=== PATIENT | female | born 1960 | race Two or more races ===

== ENCOUNTER 2018-01-25 08:50 | Inpatient (IN) | payer OTHER ==
[2018-01-25 08:59] VITALS: BMI 37.2
--- NOTE | 2018-01-25 09:17 | PDOC ---
History of Present Illness - General Chief Complaint: Pain, Acute Stated Complaint: ABD PAIN Time Seen by Provider: 01/25/18 09:07 - History of Present Illness Initial Comments: 01/25/18 09:56 57 year old female with a PMH of HTN, NIDDM presents with two day h/o abdominal pain. Pain is "sharp" and "twisting" constant, 10/10, with radiation into her back B/L. Associated yellowish emesis and nausea. No fevers/chills, diarrhea/ constipation, dysuria/hematuria. Has been tolerating PO intake however notes decreased appetite 2/2 to her symptoms. Patient denies any chest pain, shortness of breath, fevers/chills, recent travel or sick contacts. NKDA Surgical: cholecystectomy, appendectomy, hysterectomy Social: lifetime non-smoker, denies alcohol, denies recreational drugs PMD: Dr. Barajas Past History - Past Medical History Allergies/Adverse Reactions: Allergies Allergy/AdvReac Type Severity Reaction Status Date / Time No Known Allergies Allergy Verified 01/25/18 08:56 Home Medications: Ambulatory Orders Cholecalciferol (Vitamin D3) [Vitamin D3] 1,000 unit PO DAILY 01/25/18 Enalapril/Hydrochlorothiazide [Vaseretic 10-25 mg Tablet] 1 each PO DAILY Metformin HCl 500 mg PO BID 01/25/18 Multivitamin [Multiple Vitamins] 1 each PO DAILY 01/25/18 Simvastatin [Zocor -] 10 mg PO DAILY 01/25/18 Sitagliptin Phosphate [Januvia] 50 mg PO DAILY 01/25/18 COPD: No Diabetes: Yes (NIDDM) HTN: Yes Hypercholesterolemia: Yes - Surgical History Abdominal Surgery: Yes Cholecystectomy: Yes - Immunization History Immunization Up to Date: Yes - Suicide/Smoking/Psychosocial Hx Smoking Status: No Smoking History: Never smoked Number of Cigarettes Smoked Daily: 0 Hx Alcohol Use: No Review of Systems - Review of Systems Constitutional: No: Chills, Fever HEENTM: No: Recent change in vision, Mouth Swelling Respiratory: No: Shortness of Breath Cardiac (ROS): No: Chest Pain, Lightheadedness, Palpitations, Syncope ABD/GI: Yes: Nausea, Vomiting, Abdominal cramping. No: Constipated, Diarrhea : No: Burning, Dysuria *Physical Exam - Vital Signs Last Vital Signs Temp Pulse Resp BP Pulse Ox 98.4 F 90 19 140/93 97 01/25/18 08:57 01/25/18 08:57 01/25/18 08:57 01/25/18 08:57 01/25/18 08:57 - Physical Exam Comments: 01/25/18 18:38 GENERAL: Awake, alert, and fully oriented, in no acute distress HEAD: No signs of trauma EYES: PERRLA, EOMI, sclera anicteric, conjunctiva clear ENT: Auricles normal inspection, hearing grossly normal, nares patent, oropharynx clear without exudates. Moist mucosa NECK: Nontender, no stepoffs, Normal ROM, supple, no lymphadenopathy, JVD, or masses LUNGS: Breath sounds equal, clear to auscultation bilaterally. No wheezes, and no crackles HEART: Regular rate and rhythm, normal S1 and S2, no murmurs, rubs or gallops ABDOMEN: diffuse TTP, hypoactive bowel sounds, no masses, no hernia EXTREMITIES: Normal range of motion, no edema. No clubbing or cyanosis. No cords, erythema, or tenderness SKIN: Warm, Dry, normal turgor, no rashes or lesions noted. ED Treatment Course - LABORATORY CBC & Chemistry Diagram: 01/25/18 10:00 01/25/18 10:17 Medical Decision Making - Medical Decision Making 01/25/18 12:08 57 year old female presents with 2 day h/o diffuse abdominal pain with emesis. Physical exam significant for diffuse abdominal tenderness with hypoactive bowel sounds. Frontal diagnosis: SBO, mesenteric ischemia, PUD, pancreatitis, colitis. Will obtain basic labs, lactic acid, lipase as well as CT abdomen. IV NS + Morphine for pain control. 01/25/18 13:58 Leukocytosis (14.8), likely 2/2 to pancreatitis (Lipase 4653). Elevated LFT's. Will give additional 1 L IV NS. Cr 1.[address] then [address] scan. Patient c/o GERD like pain - Famotidine 01/25/18 14:[address] Gomez for pancreatitis. POC discussed with patient and patient's family, will continue to monitor while in ED. *DC/Admit/Observation/Transfer Diagnosis at time of Disposition: Pancreatitis - Discharge Dispostion Condition at time of disposition: Fair Admit: Yes - Referrals - Patient Instructions - Post Discharge Activity
[2018-01-25 10:27] LABS: BASO % 0.4 % (0-2.0); EOS % 0.1 % (0-4.5); HEMATOCRIT 42.1 % (32.4-45.2); HEMOGLOBIN 14.4 GM/dL (10.7-15.3); LYMPH % 9.6 % (8-40); MCH 29.2 pg (25.7-33.7); MCHC 34.2 g/dl (32.0-36.0); MEAN CELL VOLUME 85.5 fl (80-96); MONO % 5.4 % (3.8-10.2); NEUT % 84.5 % (42.8-82.8); PLATELET COUNT 230 K/MM3 (134-434); RBC 4.92 M/mm3 (3.60-5.2); RDW 13.9 % (11.6-15.6); WHITE BLOOD COUNT 14.8 K/mm3 (4.0-10.0)
[2018-01-25 10:29] LABS: URINE APPEARANCE SLCLOUDY; URINE BILIRUBIN NEGATIVE (<2.0 mg/dL); URINE COLOR YELLOW; URINE GLUCOSE (UA) NEGATIVE (NEGATIVE); URINE KETONE NEGATIVE (NEGATIVE); URINE LEUK ESTERASE NEGATIVE (NEGATIVE); URINE NITRITE NEGATIVE (NEGATIVE); URINE UROBILINOGEN NEGATIVE mg/dL (0.2-1.0)
[2018-01-25 10:31] LABS: EPI CELLS RARE /HPF (FEW); URINE HYALINE CAST 1 /lpf; URINE MUCUS RARE; URINE PROTEIN 1+ (NEGATIVE)
[2018-01-25] MEDS ORDERED: SODIUM CHLORIDE 1,000 ML IV STA (10:48)
[2018-01-25] MEDS ORDERED: ONDANSETRON 4 MG/2 ML VIAL IVPB ONE (10:48)
[2018-01-25] MEDS ORDERED: ONDANSETRON 4 MG/2 ML VIAL ONE (10:52)
[2018-01-25] MEDS ORDERED: morphine CARPU-JECT 4 MG/1 ML DISP.SYRIN IVPUSH ONE (11:20)
--- NOTE | 2018-01-25 11:20 | PDOC ---
Attending Attestation - Resident Resident Name: Monica Rausch - ED Attending Attestation I have performed the following: I have examined & evaluated the patient, The case was reviewed & discussed with the resident, I agree w/resident's findings & plan, Exceptions are as noted - HPI HPI: 01/25/18 11:18 The patient is a 57 year old female with past medical history of hypertension, NIDDM s/p cholecystectomy 10 years ago who presents to the ED with complaints of 2 days of abdominal pain, nausea, and vomiting. The patient reports the pain is diffuse, sharp, and constant, 10/10 in severity. It is associated with multiple episodes of yellow emesis. She reports decreased PO intake and ate soup last night. Last BM was yesterday evening as well. Denies diarrhea. The patient denies any fevers, chills, diarrhea, cough, SOB, or urinary symptoms. - Physicial Exam PE: 01/25/18 11:19 "GENERAL: Awake, alert, and fully oriented, in no acute distress. HEAD: No signs of trauma EYES: PERRLA, EOMI, sclera anicteric, conjunctiva clear ENT: Auricles normal inspection, hearing grossly normal, nares patent, oropharynx clear without exudates. Moist mucosa NECK: Nontender, no stepoffs, Normal ROM, supple, no lymphadenopathy, JVD, or masses LUNGS: Breath sounds equal, clear to auscultation bilaterally. No wheezes, and no crackles HEART: Regular rate and rhythm, normal S1 and S2, no murmurs, rubs or gallops ABDOMEN: + Diffuse TTP, normoactive bowel sounds. No guarding, no rebound. No masses EXTREMITIES: Normal range of motion, no edema. No clubbing or cyanosis. No cords, erythema, or tenderness NEUROLOGICAL: Cranial nerves II through XII intact. 5/5 strength and sensation in all extremities, Normal speech, normal gait, normal cerebellar function SKIN: Warm, Dry, normal turgor, no rashes or lesions noted. " - Medical Decision Making 01/25/18 11:19 57 F with diffuse abdominal pain + N/V. Possible SBO given prior surgical history. Also consider pancreatitis vs colitis. - Labs - CTAP - IVF, zofran, morphine
[2018-01-25] MEDS ORDERED: morphine SULFATE 4 MG/ML VIAL ONE ×2 (11:25→16:28)
[2018-01-25 11:58] LABS: ALBUMIN 4.1 g/dl (3.4-5.0); ALK PHOS 149 U/L (45-117); ANION GAP 11 (8-16); BLOOD UREA NITROGEN 26 mg/dL (7-18); CALCIUM 9.4 mg/dL (8.5-10.1); CHLORIDE 97 mmol/L (98-107); CO2 30 mmol/L (21-32); CREATININE 1.3 mg/dL (0.55-1.02); GLUCOSE,RANDOM 159 mg/dL (74-106); POTASSIUM 3.4 mmol/L (3.5-5.1); SGOT/AST 261 U/L (15-37); SGPT/ALT 481 U/L (12-78); SODIUM 138 mmol/L (136-145)
[2018-01-25] MEDS ORDERED: SODIUM CHLORIDE 0.9% 500 ML INFUS.BAG IV ONE (12:06)
[2018-01-25] MEDS ORDERED: FAMOTIDINE IV 20 MG/12 ML VIAL IVPUSH ONE (13:40)
[2018-01-25] MEDS ORDERED: FAMOTIDINE 20 MG/50 ML IVPB 20 MG/50 ML MG IVPB ONE (13:56)
[2018-01-25] MEDS ORDERED: PROMETHAZINE HCL 25 MG/1 ML VIAL IM PRN (14:47)
[2018-01-25] MEDS ORDERED: LACTATED RINGERS SOLUTION 1,000 ML IV STA (14:47)
[2018-01-25] MEDS ORDERED: morphine CARPU-JECT 2 MG/1 ML DISP.SYRIN IVPUSH PRN (14:58)
--- NOTE | 2018-01-25 15:12 | HP ---
CHIEF COMPLAINT: abdominal pain PCP: HISTORY OF PRESENT ILLNESS: The patient is a 57 yo Finnish speaking f w/ PMH HTN, HLD, DM (on metformin, januvia, lisinopril/HCTZ) who comes into the ED c/o a 2 day hx of abdominal pain , The patient describes the pain as "twisting". It is constant, 10/10 in intensity and radiates to the patient's back. The pain is associated with nausea and NBNB vomiting over the same period of time. The patient states that eating or drinking makes the pain worse, causing her to have a decreased appetite. The patient also endorses SOB and darker urine. No change is shape or caliber of stool. The patient denies CP, recent travel, sick contacts, dysuria, recent scorpion bites. No recent changes in medications or medication doses. Patient does admit to accidentally taking an extra dose of her Januvia recently. ER course was notable for: (1) 2l NS (2) ast, alt elevated (3) Lipase >2x upper limit of normal Recent Travel: none PAST MEDICAL HISTORY: see HPI PAST SURGICAL HISTORY: cholecystectomy several orthopedic surgeries. Social History: Smoking: denies Alcohol: denies Drugs: denies Family History: non-contributory Allergies No Known Allergies Allergy (Verified 01/25/18 08:56) HOME MEDICATIONS: Home Medications Medication Instructions Recorded Cholecalciferol (Vitamin D3) 1,000 unit PO DAILY 01/25/18 [Vitamin D3] Enalapril/Hydrochlorothiazide 1 each PO DAILY 01/25/18 [Vaseretic 10-25 mg Tablet] Metformin HCl 500 mg PO BID 01/25/18 Multivitamin [Multiple Vitamins] 1 each PO DAILY 01/25/18 Simvastatin [Zocor -] 10 mg PO DAILY 01/25/18 Sitagliptin Phosphate [Januvia] 50 mg PO DAILY 01/25/18 REVIEW OF SYSTEMS CONSTITUTIONAL: Absent: fever, chills, diaphoresis, generalized weakness, malaise, weight change HEENT: Absent: rhinorrhea, nasal congestion, throat pain, throat swelling, difficulty swallowing, mouth swelling, ear pain, eye pain, visual changes CARDIOVASCULAR: Absent: chest pain, syncope, palpitations, irregular heart rate, lightheadedness , peripheral edema RESPIRATORY: Absent: cough, dyspnea with exertion, orthopnea, wheezing, stridor, hemoptysis GASTROINTESTINAL: Absent: diarrhea, constipation, melena, hematochezia GENITOURINARY: Absent: dysuria, frequency, urgency, hesitancy, hematuria, flank pain, genital pain MUSCULOSKELETAL: Absent: myalgia, arthralgia, joint swelling, back pain, neck pain SKIN: Absent: rash, itching, pallor HEMATOLOGIC/IMMUNOLOGIC: Absent: easy bleeding, easy bruising, lymphadenopathy, frequent infections ENDOCRINE: Absent: unexplained weight gain, unexplained weight loss, heat intolerance, cold intolerance NEUROLOGIC: Absent: headache, focal weakness or paresthesias, dizziness, unsteady gait, seizure, mental status changes, bladder or bowel incontinence PSYCHIATRIC: Absent: anxiety, depression, suicidal or homicidal ideation, hallucinations. PHYSICAL EXAMINATION Vital Signs - 24 hr 01/25/18 01/25/18 08:57 12:44 Temperature 98.4 F Pulse Rate 90 Pulse Rate [ 84 Apical] Respiratory 19 17 Rate Blood Pressure 140/93 Blood Pressure 139/85 [Right Arm] O2 Sat by Pulse 97 100 Oximetry (%) GENERAL: Awake, alert, and fully oriented, in no acute distress. HEAD: Normal with no signs of trauma. EYES: Pupils equal, round and reactive to light, extraocular movements intact, sclera anicteric, conjunctiva clear. No lid lag. EARS, NOSE, THROAT: oropharynx clear without exudates. dry, pale mucous membranes. NECK: Normal range of motion, supple without lymphadenopathy, JVD, or masses. LUNGS: Breath sounds equal, clear to auscultation bilaterally. No wheezes, and no crackles. No accessory muscle use. HEART: Regular rate and rhythm, normal S1 and S2 without murmur, rub or gallop. ABDOMEN: Soft, diffusely tender to palpation, not distended, normoactive bowel sounds. No hepatomegaly or splenomegaly. LOWER EXTREMITIES: 2+ pulses, warm, well-perfused. No calf tenderness. No peripheral edema. NEUROLOGICAL: Cranial nerves II-X intact. Normal speech. SKIN: Warm, dry, normal turgor, no rashes or lesions noted, normal capillary refill. Laboratory Results - last 24 hr 01/25/18 01/25/18 01/25/18 10:00 10:00 10:00 WBC 14.8 H D RBC 4.92 Hgb 14.4 D Hct 42.1 D MCV 85.5 MCH 29.2 MCHC 34.2 RDW 13.9 Plt Count 230 MPV 11.0 Neutrophils % 84.5 H Lymphocytes % 9.6 D Monocytes % 5.4 Eosinophils % 0.1 Basophils % 0.4 Sodium Cancelled Potassium Cancelled Chloride Cancelled Carbon Dioxide Cancelled Anion Gap Cancelled BUN Cancelled Creatinine Cancelled Creat Clearance w eGFR Cancelled POC Glucometer Random Glucose Cancelled Lactic Acid 1.5 Calcium Cancelled Total Bilirubin Cancelled AST Cancelled ALT Cancelled Alkaline Phosphatase Cancelled Creatine Kinase Cancelled Troponin I Cancelled Total Protein Cancelled Albumin Cancelled Lipase Cancelled Urine Color Urine Appearance Urine pH Ur Specific [place] Urine Protein Urine Glucose (UA) Urine Ketones Urine Blood Urine Nitrite Urine Bilirubin Urine Urobilinogen Ur Leukocyte Esterase Urine WBC (Auto) Urine RBC (Auto) Ur Epithelial Cells Hyaline Casts Urine Mucus 01/25/18 01/25/18 01/25/18 10:17 10:17 10:18 WBC RBC Hgb Hct MCV MCH MCHC RDW Plt Count MPV Neutrophils % Lymphocytes % Monocytes % Eosinophils % Basophils % Sodium 138 Potassium 3.4 L Chloride 97 L Carbon Dioxide 30 Anion Gap 11 BUN 26 H Creatinine 1.3 H Creat Clearance w eGFR 42.07 POC Glucometer Random Glucose 159 H Lactic Acid Calcium 9.4 Total Bilirubin 1.0 D AST 261 H ALT 481 H Alkaline Phosphatase 149 H Creatine Kinase Troponin I Total Protein 8.0 Albumin 4.1 Lipase 4653 H Urine Color Yellow Urine Appearance Slcloudy Urine pH 5.0 Ur Specific [place] 1.018 Urine Protein 1+ H Urine Glucose (UA) Negative Urine Ketones Negative Urine Blood 2+ H Urine Nitrite Negative Urine Bilirubin Negative Urine Urobilinogen Negative Ur Leukocyte Esterase Negative Urine WBC (Auto) 5 Urine RBC (Auto) 2 Ur Epithelial Cells Rare Hyaline Casts 1 Urine Mucus Rare 01/25/18 10:28 WBC RBC Hgb Hct MCV MCH MCHC RDW Plt Count MPV Neutrophils % Lymphocytes % Monocytes % Eosinophils % Basophils % Sodium Potassium Chloride Carbon Dioxide Anion Gap BUN Creatinine Creat Clearance w eGFR POC Glucometer 171.77304 Random Glucose Lactic Acid Calcium Total Bilirubin AST ALT Alkaline Phosphatase Creatine Kinase Troponin I Total Protein Albumin Lipase Urine Color Urine Appearance Urine pH Ur Specific [place] Urine Protein Urine Glucose (UA) Urine Ketones Urine Blood Urine Nitrite Urine Bilirubin Urine Urobilinogen Ur Leukocyte Esterase Urine WBC (Auto) Urine RBC (Auto) Ur Epithelial Cells Hyaline Casts Urine Mucus ASSESSMENT/PLAN: The patient is a 57 yo f w/ PMH htn, HLD, DM who comes into the patient c/o pain the abdomen diagniosed with acute pancreatitis. #Acute pancreatiitis lilkey drug indiced by keara and HCTZ -LR 1L bolus, got 2l in ER -LR @ 200 mantin urin output of 0.5-1ml/kg/hr -monitor intake/output -monitor serum calcium -monitor BGM -US Abdomen look for CBD/ remanant stone/mass -Incentive spirometry -pain ctrl -NPO -phenergan PRN nausea -ISS ACHS -Lipid panel -GI consult; Dr. Ghotra -BISAP score 1 -CXR to look for effusion #elevated LFTs 2/2 statin use vs choledocolithiasis (less likely) -monitor LFTs -hepatic panel (pt w/ hx blood transfusion) #VERNON likley prerenal -monitor creatinine -IVF -avoid nephrotoxic drugs -hold home lisinopril #HTN -hold home antihypertensives -can give CCB or BB PRN HTN #DM -BGM achs -ISS achs -stop januvia -holding metformin #HLD -holding statin 2/2 elevated LFTs #FEN -LR @ 200 -monitor lytes -NPO #Prophy -SCDs -famotidine BID #Dispo -admit med surg Problem List - Problem (1) Acute pancreatitis Code(s): K85.90 - ACUTE PANCREATITIS WITHOUT NECROSIS OR INFECTION, UNSP Qualifiers: Pancreatitis type: drug induced Visit type - Emergency Visit Emergency Visit: Yes Care time: The patient presented to the Emergency Department on the above date and was hospitalized for further evaluation of their emergent condition. - New Patient This patient is new to me today: Yes Date on this admission: 01/25/18 - Critical Care Critical Care patient: No Hospitalist Screening - Colonoscopy Questionnaire Colonoscopy Questionnaire: Colonoscopy Questionnaire - Patient: 50 - 75 years old and never had a screening colonoscopy: Unknown History of colon or rectal polyps, or CA: Unknown History of IBD, Crohn's disease or UC: Unknown History of abdominal radiation therapy as a child: Unknown - Relative: 1 with colon or rectal CA, or polyps at age 60 or younger: Unknown Colon or rectal CA diagnosed at age 45 or younger: Unknown Multiple relatives with colon or rectal CA: Unknown - Outcome: Screening Result: Negative Screen
--- NOTE | 2018-01-25 16:44 | EKG ---
Test Reason : Blood Pressure : / mmHG Vent. Rate : 083 BPM Atrial Rate : 083 BPM P-R Int : 130 ms QRS Dur : 084 ms QT Int : 384 ms P-R-T Axes : -86 016 066 degrees QTc Int : 451 ms UNUSUAL P AXIS AND SHORT CO, PROBABLE JUNCTIONAL TACHYCARDIA NONSPECIFIC ST AND T WAVE ABNORMALITY ABNORMAL ECG WHEN COMPARED WITH ECG OF 08-FEB-2015 19:51, JUNCTIONAL RHYTHM HAS REPLACED SINUS RHYTHM NONSPECIFIC T WAVE ABNORMALITY NOW EVIDENT IN ANTERIOR LEADS Confirmed by MD Reynold, Dakotah ([id number]) on 01/25/2018 4:44:22 PM Referred By: Confirmed By:Dakotah Flaherty MD
[2018-01-25] MEDS: LACTATED RINGERS SOLUTION 1,000 ML IV SCH ×2 (17:24→21:47)
[2018-01-25] MEDS: INSULIN SLIDING SCALE (NOVOLOG) 1 VIAL SQ SCH ×2 (17:24→21:40)
--- NOTE | 2018-01-25 18:41 | PN ---
Teaching Attending Note Name of Resident: Gustavo Ellis ATTENDING PHYSICIAN STATEMENT I saw and evaluated the patient. I reviewed the resident's note and discussed the case with the resident. I agree with the resident's findings and plan as documented. SUBJECTIVE: OBJECTIVE: Vital Signs Period Temp Pulse Resp BP Sys/[place] Pulse Ox Last 24 Hr 98.4 F-98.9 F 84-90 17-20 124-145/72-93 97-100 Laboratory Tests 01/25/18 01/25/18 01/25/18 10:00 10:00 10:00 WBC 14.8 H D RBC 4.92 Hgb 14.4 D Hct 42.1 D MCV 85.5 MCH 29.2 MCHC 34.2 RDW 13.9 Plt Count 230 MPV 11.0 Neutrophils % 84.5 H Lymphocytes % 9.6 D Monocytes % 5.4 Eosinophils % 0.1 Basophils % 0.4 Sodium Cancelled Potassium Cancelled Chloride Cancelled Carbon Dioxide Cancelled Anion Gap Cancelled BUN Cancelled Creatinine Cancelled Creat Clearance w eGFR Cancelled POC Glucometer Random Glucose Cancelled Lactic Acid 1.5 Calcium Cancelled Total Bilirubin Cancelled AST Cancelled ALT Cancelled Alkaline Phosphatase Cancelled Creatine Kinase Cancelled Troponin I Cancelled Total Protein Cancelled Albumin Cancelled Lipase Cancelled Urine Color Urine Appearance Urine pH Ur Specific [place] Urine Protein Urine Glucose (UA) Urine Ketones Urine Blood Urine Nitrite Urine Bilirubin Urine Urobilinogen Ur Leukocyte Esterase Urine WBC (Auto) Urine RBC (Auto) Ur Epithelial Cells Hyaline Casts Urine Mucus 01/25/18 01/25/18 01/25/18 10:17 10:17 10:18 WBC RBC Hgb Hct MCV MCH MCHC RDW Plt Count MPV Neutrophils % Lymphocytes % Monocytes % Eosinophils % Basophils % Sodium 138 Potassium 3.4 L Chloride 97 L Carbon Dioxide 30 Anion Gap 11 BUN 26 H Creatinine 1.3 H Creat Clearance w eGFR 42.07 POC Glucometer Random Glucose 159 H Lactic Acid Calcium 9.4 Total Bilirubin 1.0 D AST 261 H ALT 481 H Alkaline Phosphatase 149 H Creatine Kinase Troponin I Total Protein 8.0 Albumin 4.1 Lipase 4653 H Urine Color Yellow Urine Appearance Slcloudy Urine pH 5.0 Ur Specific [place] 1.018 Urine Protein 1+ H Urine Glucose (UA) Negative Urine Ketones Negative Urine Blood 2+ H Urine Nitrite Negative Urine Bilirubin Negative Urine Urobilinogen Negative Ur Leukocyte Esterase Negative Urine WBC (Auto) 5 Urine RBC (Auto) 2 Ur Epithelial Cells Rare Hyaline Casts 1 Urine Mucus Rare 01/25/18 01/25/18 10:28 17:21 WBC RBC Hgb Hct MCV MCH MCHC RDW Plt Count MPV Neutrophils % Lymphocytes % Monocytes % Eosinophils % Basophils % Sodium Potassium Chloride Carbon Dioxide Anion Gap BUN Creatinine Creat Clearance w eGFR POC Glucometer 171.59746 126 Random Glucose Lactic Acid Calcium Total Bilirubin AST ALT Alkaline Phosphatase Creatine Kinase Troponin I Total Protein Albumin Lipase Urine Color Urine Appearance Urine pH Ur Specific [place] Urine Protein Urine Glucose (UA) Urine Ketones Urine Blood Urine Nitrite Urine Bilirubin Urine Urobilinogen Ur Leukocyte Esterase Urine WBC (Auto) Urine RBC (Auto) Ur Epithelial Cells Hyaline Casts Urine Mucus Home Medications Medication Instructions Recorded Cholecalciferol (Vitamin D3) 1,000 unit PO DAILY 01/25/18 [Vitamin D3] Enalapril/Hydrochlorothiazide 1 each PO DAILY 01/25/18 [Vaseretic 10-25 mg Tablet] Metformin HCl 500 mg PO BID 01/25/18 Multivitamin [Multiple Vitamins] 1 each PO DAILY 01/25/18 Simvastatin [Zocor -] 10 mg PO DAILY 01/25/18 Sitagliptin Phosphate [Januvia] 50 mg PO DAILY 01/25/18 ASSESSMENT AND PLAN:
[2018-01-25 20:08] LABS: CALCIUM 8.2 mg/dL (8.5-10.1); POTASSIUM 3.2 mmol/L (3.5-5.1)
[2018-01-25 20:14] LABS: TRIGLYCERIDES 94 mg/dL (35-160)
[2018-01-25 20:18] LABS: CHOLESTEROL 150 mg/dL (50-200); HDL CHOLESTEROL 77 mg/dL (40-60)
[2018-01-25] MEDS: FAMOTIDINE 20 MG/50 ML IVPB 20 MG/50 ML MG IVPB SCH (21:40)
[2018-01-25] MEDS ORDERED: FAMOTIDINE IV 20 MG/12 ML VIAL IVPUSH SCH (22:00)
[2018-01-25] MEDS ORDERED: MAGNESIUM SULF 50% (8.12 MEQ/2 ML-1 GM VIAL) IVPB ONE (22:25)
[2018-01-25] MEDS ORDERED: KCL 10 MEQ IVPB 10 MEQ/100 ML INFUS.BAG IVPB SCH (22:30)
[2018-01-25] MEDS ORDERED: MAGNESIUM SULFATE IN WATER 2 GM/50 ML IVPB IVPB ONE (22:30)
[2018-01-25] MEDS ORDERED: POTASSIUM CHLORIDE 20 MEQ in SODIUM CHLORIDE 250 ML IVPB ONE (22:30)
[2018-01-26] MEDS: INSULIN SLIDING SCALE (NOVOLOG) 1 VIAL SQ SCH ×4 (06:46→21:23)
[2018-01-26 07:48] LABS: BASO % 0.4 % (0-2.0); EOS % 0.2 % (0-4.5); HEMOGLOBIN 11.8 GM/dL (10.7-15.3); LYMPH % 11.9 % (8-40); MCHC 33.8 g/dl (32.0-36.0); MEAN CELL VOLUME 85.8 fl (80-96); MEAN PLT VOLUME 10.4 fl (7.5-11.1); MONO % 6.8 % (3.8-10.2); NEUT % 80.7 % (42.8-82.8); PLATELET COUNT 177 K/MM3 (134-434); RBC 4.08 M/mm3 (3.60-5.2); RDW 14.1 % (11.6-15.6); WHITE BLOOD COUNT 11.5 K/mm3 (4.0-10.0)
[2018-01-26 08:20] LABS: ALBUMIN 3.1 g/dl (3.4-5.0); ALK PHOS 105 U/L (45-117); ANION GAP 7 (8-16); BILIRUBIN,TOTAL 1.1 mg/dL (0.2-1.0); BLOOD UREA NITROGEN 14 mg/dL (7-18); CALCIUM 8.2 mg/dL (8.5-10.1); CHLORIDE 104 mmol/L (98-107); CO2 27 mmol/L (21-32); CREATININE 0.7 mg/dL (0.55-1.02); GLUCOSE,RANDOM 110 mg/dL (74-106); MAGNESIUM 2.1 mg/dL (1.8-2.4); PHOSPHOROUS 2.4 mg/dL (2.5-4.9); POTASSIUM 3.3 mmol/L (3.5-5.1); SGOT/AST 70 U/L (15-37); SGPT/ALT 225 U/L (12-78); SODIUM 138 mmol/L (136-145); TOT PROT 6.3 g/dl (6.4-8.2)
[2018-01-26] MEDS: FAMOTIDINE 20 MG/50 ML IVPB 20 MG/50 ML MG IVPB SCH ×2 (09:37→22:09)
[2018-01-26] MEDS: morphine SULFATE 4 MG/ML VIAL IVPUSH PRN ×3 (09:55→22:57)
--- NOTE | 2018-01-26 12:13 | CON.GI ---
Consult - History of Present Illness History of Present Illness: chart reviewed. Events noted. As per initial intake: the patient is a 57 yo Wallisian speaking f w/ PMH HTN, HLD, DM (on metformin, januvia, lisinopril/HCTZ) who comes into the ED c/o a 2 day hx of abdominal pain, The patient describes the pain as "twisting". It is constant, 10/10 in intensity and radiates to the patient's back. The pain is associated with nausea and NBNB vomiting over the same period of time. The patient states that eating or drinking makes the pain worse, causing her to have a decreased appetite. The patient also endorses SOB and darker urine. No change is shape or caliber of stool. The patient denies CP, recent travel, sick contacts, No recent changes in medications or medication doses. Patient does admit to accidentally taking an extra dose of her Januvia recently. at the time of this encounter, the patient appears comfortable. Not in distress. Complaints of vague, generalized abdominal pain and points to her epigastric area. The symptoms are unrelated to diet, activity, stressors. The patient reports poor appetite, otherwise reports no dysphagia, odynophagia, dyspepsia, persistent GERD-like symptoms, jaundice, low-grade fever, chills, unintentional weight loss, melena, hematochezia. Denies changes in stool caliber. Had cholecystectomy more than 10 years ago. Denies chronic NSAIDs, alcohol, illicit drugs. noted to have elevated lipase, normal total bili on admission with transaminitis, ALT predominant. This morning total bili slightly elevated transaminases improving. - Alcohol/Substance Use Hx Alcohol Use: No - Smoking History Smoking history: Never smoked Aproximately how many cigarettes per day: 0 Home Medications - Allergies Allergies/Adverse Reactions: Allergies Allergy/AdvReac Type Severity Reaction Status Date / Time No Known Allergies Allergy Verified 01/25/18 08:56 - Home Medications Home Medications: Ambulatory Orders Cholecalciferol (Vitamin D3) [Vitamin D3] 1,000 unit PO DAILY 01/25/18 Enalapril/Hydrochlorothiazide [Vaseretic 10-25 mg Tablet] 1 each PO DAILY Metformin HCl 500 mg PO BID 01/25/18 Multivitamin [Multiple Vitamins] 1 each PO DAILY 01/25/18 Simvastatin [Zocor -] 10 mg PO DAILY 01/25/18 Sitagliptin Phosphate [Januvia] 50 mg PO DAILY 01/25/18 Family Disease History - Family Disease History Family History: Unremarkable Review of Systems Findings/Remarks: As per H&P and HPI Physical Exam-GI Vital Signs: Vital Signs Temperature 98.2 F 01/26/18 07:00 Pulse Rate 88 01/26/18 07:00 Respiratory Rate 20 01/26/18 07:00 Blood Pressure 133/78 01/26/18 07:00 O2 Sat by Pulse Oximetry (%) 100 01/25/18 12:44 Constitutional: Yes: Well Nourished, No Distress, Calm Eyes: Yes: Conjunctiva Clear HENT: Yes: Atraumatic Neck: Yes: Supple Cardiovascular: Yes: Regular Rate and Rhythm Respiratory: Yes: Regular Gastrointestinal Inspection: No: Ascites, Distention ...Auscultate: Yes: Normoactive Bowel Sounds ...Palpate: Yes: Soft. No: Firm/Rigid, Guarding, Tenderness Neurological: Yes: Alert Labs: CBC, BMP 01/26/18 06:30 01/26/18 06:30 Laboratory Last Values WBC 11.5 K/mm3 (4.0-10.0) H 01/26/18 06:30 RBC 4.08 M/mm3 (3.60-5.2) 01/26/18 06:30 Hgb 11.8 GM/dL (10.7-15.3) D 01/26/18 06:30 Hct 35.0 % (32.4-45.2) D 01/26/18 06:30 MCV 85.8 fl (80-96) 01/26/18 06:30 MCH 29.0 pg (25.7-33.7) 01/26/18 06:30 MCHC 33.8 g/dl (32.0-36.0) 01/26/18 06:30 RDW 14.1 % (11.6-15.6) 01/26/18 06:30 Plt Count 177 K/MM3 (134-434) D 01/26/18 06:30 MPV 10.4 fl (7.5-11.1) 01/26/18 06:30 Neutrophils % 80.7 % (42.8-82.8) 01/26/18 06:30 Lymphocytes % 11.9 % (8-40) D 01/26/18 06:30 Monocytes % 6.8 % (3.8-10.2) 01/26/18 06:30 Eosinophils % 0.2 % (0-4.5) D 01/26/18 06:30 Basophils % 0.4 % (0-2.0) 01/26/18 06:30 Sodium 138 mmol/L (136-145) 01/26/18 06:30 Potassium 3.3 mmol/L (3.5-5.1) L 01/26/18 06:30 Chloride 104 mmol/L (98-107) 01/26/18 06:30 Carbon Dioxide 27 mmol/L (21-32) 01/26/18 06:30 Anion Gap 7 (8-16) L 01/26/18 06:30 BUN 14 mg/dL (7-18) 01/26/18 06:30 Creatinine 0.7 mg/dL (0.55-1.02) 01/26/18 06:30 Creat Clearance w eGFR > 60 (>60) 01/26/18 06:30 POC Glucometer 114 UNITS (80-120) 01/26/18 06:45 Random Glucose 110 mg/dL (74-106) H 01/26/18 06:30 Lactic Acid 1.5 mmol/L (0.0-2.0) 01/25/18 10:00 Calcium 8.2 mg/dL (8.5-10.1) L 01/26/18 06:30 Phosphorus 2.4 mg/dL (2.5-4.9) L 01/26/18 06:30 Magnesium 2.1 mg/dL (1.8-2.4) 01/26/18 06:30 Total Bilirubin 1.1 mg/dL (0.2-1.0) H 01/26/18 06:30 AST 70 U/L (15-37) H 01/26/18 06:30 ALT 225 U/L (12-78) H 01/26/18 06:30 Alkaline Phosphatase 105 U/L (45-117) 01/26/18 06:30 Creatine Kinase Cancelled 01/25/18 10:00 Troponin I Cancelled 01/25/18 10:00 Total Protein 6.3 g/dl (6.4-8.2) L 01/26/18 06:30 Albumin 3.1 g/dl (3.4-5.0) L 01/26/18 06:30 Triglycerides 94 mg/dL (35-160) 01/25/18 18:50 Cholesterol 150 mg/dL (50-200) 01/25/18 18:50 Total LDL Cholesterol 70 mg/dL (5-100) 01/25/18 18:50 HDL Cholesterol 77 mg/dL (40-60) H 01/25/18 18:50 Lipase 4653 U/L (73-393) H 01/25/18 10:17 Urine Color Yellow 01/25/18 10:18 Urine Appearance Slcloudy 01/25/18 10:18 Urine pH 5.0 (5.0-8.0) 01/25/18 10:18 Ur Specific [place] 1.018 (1.001-1.035) 01/25/18 10:18 Urine Protein 1+ (NEGATIVE) H 01/25/18 10:18 Urine Glucose (UA) Negative (NEGATIVE) 01/25/18 10:18 Urine Ketones Negative (NEGATIVE) 01/25/18 10:18 Urine Blood 2+ (NEGATIVE) H 01/25/18 10:18 Urine Nitrite Negative (NEGATIVE) 01/25/18 10:18 Urine Bilirubin Negative (<2.0 mg/dL) 01/25/18 10:18 Urine Urobilinogen Negative mg/dL (0.2-1.0) 01/25/18 10:18 Ur Leukocyte Esterase Negative (NEGATIVE) 01/25/18 10:18 Urine WBC (Auto) 5 /hpf (3-5) 01/25/18 10:18 Urine RBC (Auto) 2 /hpf (0-3) 01/25/18 10:18 Ur Epithelial Cells Rare /HPF (FEW) 01/25/18 10:18 Hyaline Casts 1 /lpf 01/25/18 10:18 Urine Mucus Rare 01/25/18 10:18 Imaging - Results Ultrasound: Report Reviewed Problem List - Problems (1) Transaminitis Code(s): R74.0 - NONSPEC ELEV OF LEVELS OF TRANSAMNS & LACTIC ACID DEHYDRGNSE (2) Cholestasis Code(s): K83.1 - OBSTRUCTION OF BILE DUCT (3) Acute pancreatitis Code(s): K85.90 - ACUTE PANCREATITIS WITHOUT NECROSIS OR INFECTION, UNSP Qualifiers: Pancreatitis type: drug induced Assessment/Plan A 57-year-old female with what appears to be a gallstone pancreatitis. Biliary imaging Eros for choledocholithiasis, although dilated biliary ducts. This appears to be first episode of acute pancreatitis. Total bili slightly lagging behind, transaminases and alkaline phosphatase are improving. Start clear liquid diet. Monitor for worsening abdominal symptoms. Consider MRCP to evaluate for choledocholithiasis
[2018-01-26] MEDS: LACTATED RINGERS SOLUTION 1,000 ML IV SCH (16:40)
[2018-01-26] MEDS ORDERED: POTASSIUM CHLORIDE 10 MEQ in SODIUM CHLORIDE 100 ML IVPB SCH (17:45)
--- NOTE | 2018-01-26 18:36 | PN ---
Physical Exam: SUBJECTIVE: Patient seen and examined at bedside. Patient states that her pain is resolved and that she is hungry. No episodes of Nausea or vomiting overnight. OBJECTIVE: Vital Signs Period Temp Pulse Resp BP Sys/Rivera Pulse Ox Last 24 Hr 98 F-99.1 F 86-94 18-20 129-143/61-91 GENERAL: The patient is awake, alert, and fully oriented, in no acute distress. HEAD: Normal with no signs of trauma. NECK: Trachea midline, full range of motion, supple. LUNGS: Breath sounds equal, clear to auscultation bilaterally, no wheezes, no crackles, no accessory muscle use. HEART: Regular rate and rhythm, S1, S2 without murmur, rub or gallop. ABDOMEN: Soft, nontender, nondistended, obese, normoactive bowel sounds, no guarding, no rebound, no hepatosplenomegaly, no masses. EXTREMITIES: 2+ pulses, warm, well-perfused, no edema. NEUROLOGICAL: Cranial nerves II through X grossly intact. Normal speech, gait not observed. SKIN: Warm, dry, normal turgor, no rashes or lesions noted Laboratory Results - last 24 hr 01/25/18 01/25/18 01/25/18 17:15 18:50 18:50 WBC RBC Hgb Hct MCV MCH MCHC RDW Plt Count MPV Neutrophils % Lymphocytes % Monocytes % Eosinophils % Basophils % Sodium Potassium 3.2 L Chloride Carbon Dioxide Anion Gap BUN Creatinine Creat Clearance w eGFR POC Glucometer Random Glucose Calcium 8.2 L Phosphorus Magnesium 1.5 L Total Bilirubin AST ALT Alkaline Phosphatase Total Protein Albumin Triglycerides 94 Cholesterol 150 Total LDL Cholesterol 70 HDL Cholesterol 77 H 01/25/18 01/26/18 01/26/18 21:38 06:30 06:30 WBC 11.5 H RBC 4.08 Hgb 11.8 D Hct 35.0 D MCV 85.8 MCH 29.0 MCHC 33.8 RDW 14.1 Plt Count 177 D MPV 10.4 Neutrophils % 80.7 Lymphocytes % 11.9 D Monocytes % 6.8 Eosinophils % 0.2 D Basophils % 0.4 Sodium 138 Potassium 3.3 L Chloride 104 Carbon Dioxide 27 Anion Gap 7 L BUN 14 Creatinine 0.7 Creat Clearance w eGFR > 60 POC Glucometer 131 Random Glucose 110 H Calcium 8.2 L Phosphorus 2.4 L Magnesium 2.1 Total Bilirubin 1.1 H AST 70 H ALT 225 H Alkaline Phosphatase 105 Total Protein 6.3 L Albumin 3.1 L Triglycerides Cholesterol Total LDL Cholesterol HDL Cholesterol 01/26/18 01/26/18 01/26/18 06:45 11:52 17:04 WBC RBC Hgb Hct MCV MCH MCHC RDW Plt Count MPV Neutrophils % Lymphocytes % Monocytes % Eosinophils % Basophils % Sodium Potassium Chloride Carbon Dioxide Anion Gap BUN Creatinine Creat Clearance w eGFR POC Glucometer 114 104 121 Random Glucose Calcium Phosphorus Magnesium Total Bilirubin AST ALT Alkaline Phosphatase Total Protein Albumin Triglycerides Cholesterol Total LDL Cholesterol HDL Cholesterol Active Medications Generic Name Dose Route Start Last Admin Trade Name Freq PRN Reason Stop Dose Admin Famotidine/Sodium Chloride 20 mg in 50 mls @ 100 mls/hr 01/25/18 22:00 09:37 Pepcid 20 Mg Premixed Ivpb - IVPB 100 mls/hr BID OSMAN Administration Lactated Ringer's 1,000 mls @ 100 mls/hr 01/26/18 14:17 01/26/18 16:40 Lactated Ringers Solution IV 100 mls/hr ASDIR OSMAN Administration Potassium Chloride 10 meq/ 105 mls @ 105 mls/hr 01/26/18 17:45 Sodium Chloride IVPB 01/26/18 18:44 Q60M OSMAN Insulin Aspart 1 vial 01/25/18 16:30 01/26/18 17:05 Novolog Vial Sliding Scale - SQ Not Given ACHS OSMAN Protocol Morphine Sulfate 2 mg 01/26/18 09:25 Morphine Sulfate IVPUSH Q6H PRN PAIN LEVEL 6-10 Morphine Sulfate 1 mg 01/26/18 09:27 01/26/18 16:42 Morphine Sulfate IVPUSH 1 mg Q6H PRN Administration PAIN LEVEL 1-5 Promethazine HCl 25 mg 01/25/18 14:47 Phenergan Injection - IM Q6H PRN NAUSEA AND/OR VOMITING ASSESSMENT/PLAN: The patient is a 57 yo f w/ PMH htn, HLD, DM who comes into the patient c/o pain the abdomen diagniosed with acute pancreatitis. #Acute pancreatitis likely drug induced by januvia and HCTZ -LR @ 200 maintain urin output of 0.5-1ml/kg/hr -monitor intake/output -monitor serum calcium -US Abdomen shows no duct dilatation and fatty liver infiltration. -Incentive spirometry -pain ctrl -phenergan PRN nausea -Lipid panel WNL -GI consult; Dr. Ghotra: recommends MRCP -BISAP score 1 -CXR negative #elevated LFTs 2/2 statin use vs choledocolithiasis (less likely) -monitor LFTs -hepatic panel pending #VERNON nathalia prerenal -monitor creatinine -IVF -avoid nephrotoxic drugs -hold home lisinopril #HTN -hold home antihypertensives -can give CCB or BB PRN HTN #DM -BGM achs -ISS achs -stop januvia -holding metformin #HLD -holding statin 2/2 elevated LFTs #FEN -LR @ 200 -monitor lytes -clear liquid diet #Prophy -SCDs -famotidine BID #Dispo -admit med surg Problem List - Problems (1) Acute pancreatitis Code(s): K85.90 - ACUTE PANCREATITIS WITHOUT NECROSIS OR INFECTION, UNSP Qualifiers: Pancreatitis type: drug induced Visit type - Emergency Visit Emergency Visit: Yes ED Registration Date: 01/25/18 Care time: The patient presented to the Emergency Department on the above date and was hospitalized for further evaluation of their emergent condition. - New Patient This patient is new to me today: No - Critical Care Critical Care patient: No
[2018-01-26] MEDS ORDERED: MAGNESIUM SULF 50% (8.12 MEQ/2 ML-1 GM VIAL) IVPB ONE (19:12)
--- NOTE | 2018-01-26 19:17 | PN ---
Teaching Attending Note Name of Resident: Gustavo Ellis ATTENDING PHYSICIAN STATEMENT I saw and evaluated the patient. I reviewed the resident's note and discussed the case with the resident. I agree with the resident's findings and plan as documented. SUBJECTIVE: abd pain improved . has no N/V, tolerated liquids OBJECTIVE: NA D CV : RRR Lungs CTAB Abd: sfot, minimal TTP in epigastric area , with no rebound tenderness or guarding Ext: no edema A/P 57 y/o lady with h/o JOSE RAMON, , HTN, , DM and other medical problems who presented with ABd painand was found othave acute panscreatitis . 1- Acute pancreatitis : due to DM vs meds vs gall stones ( LFTS peaked and trending down ) - clears tolerated . - MRCP - hold sitagliptin and HCTZ - decrease IVF 2- HTN: holding enalapril/HCTZ can probably resume enalapril tomorrow if renal function remains stable 3- DM : cont SSI for now 4- VERNON: due to volume depletion , cont IVF . cr normalized 5- replete K and Mg DVT PX
[2018-01-26] MEDS ORDERED: MAGNESIUM SULFATE IN WATER 2 GM/50 ML IVPB IVPB ONE (19:45)
[2018-01-26] MEDS: NAPH,MB-DB/K PH,MBDB POWDER PACKET PO SCH (21:24)
[2018-01-27] MEDS: NAPH,MB-DB/K PH,MBDB POWDER PACKET PO SCH ×3 (05:15→21:06)
[2018-01-27] MEDS: morphine SULFATE 4 MG/ML VIAL IVPUSH PRN (05:15)
[2018-01-27] MEDS: LACTATED RINGERS SOLUTION 1,000 ML IV SCH ×2 (05:15→17:21)
[2018-01-27] MEDS: INSULIN SLIDING SCALE (NOVOLOG) 1 VIAL SQ SCH ×4 (06:08→21:06)
[2018-01-27 08:42] LABS: ALBUMIN 3.1 g/dl (3.4-5.0); ALK PHOS 99 U/L (45-117); ANION GAP 7 (8-16); BILIRUBIN,TOTAL 1.1 mg/dL (0.2-1.0); BLOOD UREA NITROGEN 9 mg/dL (7-18); CALCIUM 8.6 mg/dL (8.5-10.1); CHLORIDE 104 mmol/L (98-107); CO2 26 mmol/L (21-32); CREATININE 0.6 mg/dL (0.55-1.02); GLUCOSE,RANDOM 98 mg/dL (74-106); POTASSIUM 3.3 mmol/L (3.5-5.1); SGOT/AST 31 U/L (15-37); SGPT/ALT 148 U/L (12-78); SODIUM 137 mmol/L (136-145); TOT PROT 6.6 g/dl (6.4-8.2)
[2018-01-27] MEDS: FAMOTIDINE 20 MG/50 ML IVPB 20 MG/50 ML MG IVPB SCH ×2 (09:34→21:05)
[2018-01-27] MEDS ORDERED: diazePAM 5 MG TABLET PO ONE (10:00)
[2018-01-27 10:12] LABS: HEP.C VIRUS AB <0.1 s/co ratio (0.0-0.9)
--- NOTE | 2018-01-27 14:39 | PN ---
Teaching Attending Note Name of Resident: Gustavo Ellis ATTENDING PHYSICIAN STATEMENT I saw and evaluated the patient. I reviewed the resident's note and discussed the case with the resident. I agree with the resident's findings and plan as documented. SUBJECTIVE: [employer]o [employer] founder line [id number] used no fever or chills , abd pain has much improved . tolerated liquid diet . wanted solid food. lower back pain last night OBJECTIVE: NAD CV : RRR Lungs :CTAB Abd: soft , minimal TTP in epigastric area , with no rebound tenderness or guarding . NL BS . RUQ scar Ext: no edema A/P 57 y/o lady with h/o JOSE RAMON, , HTN, ,s/p cholecystectomy, DM and other medical problems who presented with ABd painand was found othave acute panscreatitis . 1- Acute pancreatitis: due to DM vs meds vs gall stones . h/o CCY - advance to low fat diet - MRCP pending read - hold sitagliptin and HCTZ - dc morphine. - cont IVF for today 2- HTN: holding enalapril/HCTZ can resume enalapril if BP rises 3- DM : A1c 6.7. can cont with metformin alone , with close f/u 4- VERNON: due to volume depletion. cr normalized 5- replete K dispo : pending MRI read . if no CBD stones , can dc home today.
[2018-01-27] MEDS ORDERED: oxyCODONE HCL 5 MG TABLET PO ONE (16:17)
--- NOTE | 2018-01-27 19:54 | PN ---
Physical Exam: SUBJECTIVE: Patient seen and examined at bedside. Patient feels well, no more nausea or vomiting, but states she is concerned about her head and neck pain today. Patient denies change in vision, weakness or numbness. OBJECTIVE: Vital Signs Period Temp Pulse Resp BP Sys/Rivera Pulse Ox Last 24 Hr 98.2 F-99.4 F 63-95 18-20 118-154/55-89 94-94 GENERAL: The patient is awake, alert, and fully oriented, in no acute distress. HEAD: Normal with no signs of trauma. NECK: Trachea midline, full range of motion, supple. LUNGS: Breath sounds equal, clear to auscultation bilaterally, no wheezes, no crackles, no accessory muscle use. HEART: Regular rate and rhythm, S1, S2 without murmur, rub or gallop. ABDOMEN: Soft, nontender, nondistended, normoactive bowel sounds, no guarding, no rebound, no hepatosplenomegaly, no masses. EXTREMITIES: 2+ pulses, warm, well-perfused, no edema. NEUROLOGICAL: Cranial nerves II through X grossly intact. Normal speech, gait not observed. SKIN: Warm, dry, normal turgor, no rashes or lesions noted Laboratory Results - last 24 hr 01/25/18 01/26/18 01/27/18 18:50 21:15 05:58 Sodium Potassium Chloride Carbon Dioxide Anion Gap BUN Creatinine Creat Clearance w eGFR POC Glucometer 129 99 Random Glucose Hemoglobin A1c % Calcium Total Bilirubin AST ALT Alkaline Phosphatase Total Protein Albumin Hepatitis A IgM Ab Negative Hep Bs Antigen Negative Hep B Core IgM Ab Negative Hepatitis C Antibody <0.1 01/27/18 01/27/18 01/27/18 06:30 06:30 12:09 Sodium 137 Potassium 3.3 L Chloride 104 Carbon Dioxide 26 Anion Gap 7 L BUN 9 Creatinine 0.6 Creat Clearance w eGFR > 60 POC Glucometer 103 Random Glucose 98 Hemoglobin A1c % 6.7 H Calcium 8.6 Total Bilirubin 1.1 H AST 31 ALT 148 H Alkaline Phosphatase 99 Total Protein 6.6 Albumin 3.1 L Hepatitis A IgM Ab Hep Bs Antigen Hep B Core IgM Ab Hepatitis C Antibody Active Medications Generic Name Dose Route Start Last Admin Trade Name Freq PRN Reason Stop Dose Admin Docusate Sodium 100 mg 01/27/18 22:00 Colace - PO HS OSMAN Famotidine/Sodium Chloride 20 mg in 50 mls @ 100 mls/hr 01/25/18 22:00 09:34 Pepcid 20 Mg Premixed Ivpb - IVPB 100 mls/hr BID OSMAN Administration Lactated Ringer's 1,000 mls @ 100 mls/hr 01/26/18 14:17 01/27/18 17:21 Lactated Ringers Solution IV Not Given ASDIR OSMAN Insulin Aspart 1 vial 01/25/18 16:30 01/27/18 17:53 Novolog Vial Sliding Scale - SQ Not Given ACHS OSMAN Protocol Potassium Phos/Sodium Phos 1 packet 01/26/18 22:00 01/27/18 13:06 Phos-Nak Packet - PO 1 packet TID OSMAN Administration Promethazine HCl 25 mg 01/25/18 14:47 Phenergan Injection - IM Q6H PRN NAUSEA AND/OR VOMITING ASSESSMENT/PLAN: The patient is a 57 yo f w/ PMH htn, HLD, DM who comes into the patient c/o pain the abdomen diagnosed with acute pancreatitis. #Acute pancreatitis likely drug induced by januvia and HCTZ -LR @ 100 -US Abdomen shows no duct dilatation and fatty liver infiltration. -MRCP shows no choledocolithiasis, but "periductal enhancement suggesting an element of colangitis" -Per GI, keeping patient overnight to confirm leukocytosis resolves, then may DC in the morning. -Patient tolerating solid diet. #elevated LFTs 2/2 statin use vs choledocolithiasis (less likely) -monitor LFTs -hepatic panel pending -AST wnl today, ALT elevated #Back and neck pain likely secondary to lying in bed while sick -no weakness, numbness or tingling -may give oxy 5; avoid tylenol 2/2 transaminitis #VERNON - resolved -creatinine WNL #HTN - controlled -Will advise patient to stop hctz -hold home antihypertensives -will give lisinopril 20 on discharge #DM -BGM achs -ISS achs -stop januvia -holding metformin #HLD -holding statin 2/2 elevated LFTs #FEN -LR @ 100 -monitor lytes -clear liquid diet #Prophy -SCDs -famotidine BID #Dispo -admit med surg Problem List - Problems (1) Acute pancreatitis Code(s): K85.90 - ACUTE PANCREATITIS WITHOUT NECROSIS OR INFECTION, UNSP Qualifiers: Pancreatitis type: drug induced Visit type - Emergency Visit Emergency Visit: Yes ED Registration Date: 01/25/18 Care time: The patient presented to the Emergency Department on the above date and was hospitalized for further evaluation of their emergent condition. - New Patient This patient is new to me today: No - Critical Care Critical Care patient: No
[2018-01-27] MEDS ORDERED: POTASSIUM CHLORIDE TABS 20 MEQ TABLET.ER (FP) PO ONE (20:15)
[2018-01-27] MEDS ORDERED: DOCUSATE SODIUM 100 MG CAPSULE (FP) PO SCH (22:00)
[2018-01-28] MEDS: NAPH,MB-DB/K PH,MBDB POWDER PACKET PO SCH (05:59)
[2018-01-28] MEDS: INSULIN SLIDING SCALE (NOVOLOG) 1 VIAL SQ SCH ×2 (06:00→12:02)
[2018-01-28 08:07] LABS: HEMATOCRIT 35.8 % (32.4-45.2); HEMOGLOBIN 12.1 GM/dL (10.7-15.3); MCH 29.1 pg (25.7-33.7); MCHC 33.8 g/dl (32.0-36.0); MEAN CELL VOLUME 86.1 fl (80-96); MEAN PLT VOLUME 10.5 fl (7.5-11.1); PLATELET COUNT 179 K/MM3 (134-434); RBC 4.16 M/mm3 (3.60-5.2); RDW 13.7 % (11.6-15.6); WHITE BLOOD COUNT 8.5 K/mm3 (4.0-10.0)
[2018-01-28 08:59] LABS: BASO % 0.8 % (0-2.0); EOS % 1.2 % (0-4.5); HEMATOCRIT 35.8 % (32.4-45.2); HEMOGLOBIN 12.2 GM/dL (10.7-15.3); LYMPH % 21.7 % (8-40); MCH 29.4 pg (25.7-33.7); MEAN CELL VOLUME 86.5 fl (80-96); MEAN PLT VOLUME 10.8 fl (7.5-11.1); MONO % 8.9 % (3.8-10.2); NEUT % 67.4 % (42.8-82.8); PLATELET COUNT 181 K/MM3 (134-434); RBC 4.14 M/mm3 (3.60-5.2); RDW 13.8 % (11.6-15.6); WHITE BLOOD COUNT 8.6 K/mm3 (4.0-10.0)
[2018-01-28 09:09] LABS: ALBUMIN 3.2 g/dl (3.4-5.0); BILIRUBIN,DIRECT 0.3 mg/dL (0.0-0.2)
[2018-01-28] MEDS: FAMOTIDINE 20 MG/50 ML IVPB 20 MG/50 ML MG IVPB SCH (10:08)
[2018-01-28] MEDS ORDERED: oxyCODONE HCL 5 MG TABLET PO ONE (10:30)
[2018-01-28 11:37] VITALS: BP 142/87; PULSE 93; TEMP 98.1
--- NOTE | 2018-01-28 13:08 | PN ---
Teaching Attending Note Name of Resident: Gustavo Ellis ATTENDING PHYSICIAN STATEMENT I saw and evaluated the patient. I reviewed the resident's note and discussed the case with the resident. I agree with the resident's findings and plan as documented. SUBJECTIVE: no feevr ro chills, has no abd pain, request painmeds at c for her chronic R knee and back pain. tolerated diet but does not like hospital food. wants to go home OBJECTIVE: NAD CV : RRR Lungs :CTAB Abd: soft , ND, NT , NL BS. Ext: no edema A/P 57 y/o lady with h/o JOSE RAMON, , HTN, ,s/p cholecystectomy, DM and other medical problems who presented with ABd pain and was found to have acute panscreatitis. 1- Acute pancreatitis: due to DM vs meds vs stones. h/o CCY - tolerated low fat diet - MRCP with no dilation in CBD, but edwin-ductal fluid that might indicate cholangitis. pt has no signs of sepsis , and LFTS recovered, but due to the findings, and possibility of recovering form an early cholangitis , will start po levaquin and flagyl x 1 week. f/u with GI. - hold sitagliptin and HCTZ after dc 2- HTN: holding enalapril/HCTZ give lisinopril at dc 20 mg 3- DM : A1c 6.7. can cont with metformin alone , with close f/u 4- VERNON: due to volume depletion. cr normalized dispo : dc home today. plan d/w patient with the help of outreach and education social worker for interpretation
--- NOTE | 2018-01-29 11:24 | DS ---
Physical Exam: SUBJECTIVE: Patient seen and examined at bedside. Abdominal pain resolved. c/o pain in back and neck. No leg weakness. OBJECTIVE: PHYSICAL EXAM GENERAL: Awake, alert, and fully oriented, in no acute distress. HEAD: Normal with no signs of trauma. NECK: Normal range of motion, supple without lymphadenopathy, JVD, or masses. LUNGS: Breath sounds equal, clear to auscultation bilaterally. No wheezes, and no crackles. No accessory muscle use. HEART: Regular rate and rhythm, normal S1 and S2 without murmur, rub or gallop. ABDOMEN: Soft, mildly tender to palpation, not distended, normoactive bowel sounds. No hepatomegaly or splenomegaly. LOWER EXTREMITIES: 2+ pulses, warm, well-perfused. No calf tenderness. No peripheral edema. NEUROLOGICAL: Cranial nerves II-X intact. Normal speech. SKIN: Warm, dry, normal turgor, no rashes or lesions noted. LABS Laboratory Results - last 24 hr 01/28/18 11:59 POC Glucometer 112 HOSPITAL COURSE: Date of Admission:01/25/18 The patient is a 57 yo [place] speaking f w/ PMH HTN, HLD, DM (on metformin, januvia, lisinopril/HCTZ) who presented to the ED c/o a 2 day hx of 10/10 abdominal pain radiating to her back as well as nausea and NBNB vomiting. The patient admitted to accidentally taking an extra dose of her Januvia recently, but denied any other changes to medications. In the ED, She was found to have an AST of 261, and ALT of 481, an ALP of 149, a leukocytosis to 14.8 and a lipase of 4653. The patient was admitted for the treatment of acute pancreatitis. A RUQ US showed that the patient was s/p cholecystectomy, did not show any dilation of the intra or extrabilliary ducts but did show fatty liver infiltration. A CXR was negative for acute pathology. GI was consulted. The patient received 2 L of fluid in the ED and was given another 1L bolus of LR before LR was started at 200ml/hr. The patient was treated with morphine, oxycodone, famotidine, zofran and Phenergan. The patient improved quickly on this treatment and was given first a clear liquid diet, then a diabetic diet. Her nausea and abdominal pain resolved. There was concern for choledocholithiasis, so an MRCP was performed. It showed no stone in the pancreatic duct, no necrosis of the pancreas, but did show billiary periductal enhancement suggestive of an element of cholangitis. The patient was asymptomatic and afebrile at this time and her LFTs were trending down. Her leukocytosis had also resolved. Though clinical suspicion for fulminant cholangitis was low, the decision was made to treat the patient empirically. The patient was discharged with several changes in her medications. Given her A1c during her admission was 6.7, the decision was made to discharge her on monotherapy. She was advised to STOP her Januvia and to continue her Metformin. She was also advised to STOP taking her enalapril/HCTZ 10-25mg and instead was given a prescription for Lisinopril 20mg. The patient was given prescriptions for Levaquin 750mg daily and Flagyl 500mg Q8H to complete a 7 day course of ABX. The patient was advised to follow up with both her PCP as well as a [facility] within 1 week of discharge. Consults: MOISES Oneal Date of Discharge: 01/29/18 Minutes to complete discharge: 44 Discharge Summary Reason For Visit: PANCREATITIS Condition: Improved - Instructions Diet, Activity, Other Instructions: You were treated for pancreatitis, an inflammation of your pancreas. Please be advised, there are some medications which caused your condition and you need to stop them in order to prevent it from happening again. We are sending you home with some medications to help fight a possible infection in your abdomen. One antibiotic is called levaquin. Please take 750 mg of this medication daily for the next 7 days. The second antibiotic is called flagyl. You should take 500mg of this medication every 8 hours for the next 7 days. Please STOP taking your blood pressure pill, lisinopril/hydrochlorathiazide and discard all of the pills. The hydrochlorathiazide in this medication likely helped cause your pancreatitis. We will be switching you to another pill with only lisinopril in it. Have your blood pressure checked by your doctor in 1 week. Please STOP taking your Januvia and discard all of the pills. This medication also helped cause your pancreatitis. You should resume taking the rest of your medications, except for those mentioned above, as prescribed. Take levaquin and flagyl for infection. You will need to have a blood test taken in one week to make sure your liver enzymes continue to decrease. You can get a prescription for this test from your doctor. Follow-up: You should follow up with a [facility] for further evaluation of your pancreas. Information for Dr. Ghotra has been included in your discharge paperwork. please call to make an appointment. Please follow up with your primary care physician, , in one week for post-hospital evaluation Please speak to your doctor about your diet and exercise to help control your diabetes. check your sugar daily before eahc meal and report to your doctor in q week to help make any changes to your diabetes meds If you begin to feel chest pain, shortness of breath, increasing abdominal pain or severe nasuea and vomiting, please call your doctor or return to the emergency department. please resume zocor after 1 week to avoid any liver injury Referrals: Young Ghotra MD [Staff Physician] - Sasha Diamond MD [Staff Physician] - Disposition: HOME - Home Medications Comprehensive Discharge Medication List: Ambulatory Orders Cholecalciferol (Vitamin D3) [Vitamin D3] 1,000 unit PO DAILY 01/25/18 Metformin HCl 500 mg PO BID 01/25/18 Multivitamin [Multiple Vitamins] 1 each PO DAILY 01/25/18 Simvastatin [Zocor -] 10 mg PO DAILY 01/25/18 Lisinopril [Prinivil] 20 mg PO DAILY #30 tablet 01/27/18 levoFLOXacin [Levaquin] 750 mg PO DAILY #7 tab 01/28/18 metroNIDAZOLE [Metronidazole] 500 mg PO Q8H #21 tablet 01/28/18 This patient is new to me today: No Emergency Visit: Yes ED Registration Date: 01/25/18 Care time: The patient presented to the Emergency Department on the above date and was hospitalized for further evaluation of their emergent condition. Critical Care patient: No - Discharge Referral Referred to [facility] Med P.C.: No
== END 2018-01-28 13:37 | disposition home or self-care (01) | DRG 282 ==
LOC: JER 08:50 → JERBED 14:17 → J8W 17:03
PROVIDERS: ADMIT Internal Medicine; ATTEND Internal Medicine
DX: K85.30 Drug induced acute pancreatitis without necrosis or infection (principal); K83.0 Cholangitis; N17.9 Acute kidney failure, unspecified; K76.0 Fatty (change of) liver, not elsewhere classified; R74.0 Nonspecific elevation of levels of transaminase and lactic acid dehydrogenase [LDH]; I10 Essential (primary) hypertension; E11.9 Type 2 diabetes mellitus without complications; Z79.84 Long term (current) use of oral hypoglycemic drugs; E78.5 Hyperlipidemia, unspecified; Z90.710 Acquired absence of both cervix and uterus; G47.33 Obstructive sleep apnea (adult) (pediatric); E86.9 Volume depletion, unspecified
CPT/HCPCS: 36415; 71045-TC-FY; 74182-TC; 76705-TC; 80053; 80061; 80074; 80076; 81003; 81015; 82310; 82962; 83036; 83605; 83690; 83721; 83735; 84100; 84132; 85025; 85027; 87086; 93005; 93010; 97116-GP; 97161-GP; 99285-25; J7030

== ENCOUNTER 2024-10-30 10:53 | Emergency (ER) | payer OTHER ==
[2024-10-30 11:42] VITALS: BP 115/89; PULSE 92; RESP 17; TEMP 98.6; BMI 35.6
[2024-10-30] MEDS ORDERED: ACETAMINOPHEN 500 MG TABLET (FP) ONE (12:26)
[2024-10-30] MEDS ORDERED: CEPHALEXIN MONOHYDRATE 500 MG CAPSULE (UD) ONE (12:26)
[2024-10-30] MEDS: CEPHALEXIN MONOHYDRATE 500 MG CAPSULE (UD) PO ONE (12:28)
[2024-10-30] MEDS: ACETAMINOPHEN 500 MG TABLET (FP) PO ONE (12:28)
== END 2024-10-30 12:53 | disposition home or self-care (01) ==
LOC: JER 10:53 → JERFT 10:53
DX: L03.012 Cellulitis of left finger (principal); M79.645 Pain in left finger(s)
CPT/HCPCS: 99283-25